=== PATIENT | female | born 1950 | race Caucasian/White ===

== ENCOUNTER 2021-10-17 17:22 | Observation (INO) | payer MEDICARE, MEDICAID ==
[2021-10-17] VITALS (12 sets, daily range): BP systolic 109–168; BP diastolic 50–132
[~2021-10-17] VITALS: Ht 149.9 cm; Wt 42.0 kg
[2021-10-17 18:23] LABS: HEMATOCRIT 41.5 % (37.0-47.0); HEMOGLOBIN 13.5 g/dl (12.0-16.0); IMMATURE GRANULOCYTES 0.1 % (0.0-5.0); MEAN CELL VOLUME 93.7 fL CALC (80.0-100.0); MEAN CORPUSCULAR HGB 30.5 pG CALC (26.0-32.0); MEAN CORPUSCULAR HGB CONC 32.5 g/dL CAL (32.0-36.0); NEUT# 12.62 thou/uL (2.00-7.15); RED BLOOD COUNT 4.43 mill/uL (4.20-5.60); RED CELL DISTRI WIDTH 14.4 % (11.5-15.5)
[2021-10-17 19:36] LABS: ALKALINE PHOSPHATASE 109 u/l (38-126); ANION GAP 13 (6-22 (CALC)); BILIRUBIN, TOTAL 0.4 mg/dL (0.0-1.4); BUN 11 mg/dL (8-23); BUN/CREATININE RATIO 21 (12-20 (CALC)); CARBON DIOXIDE 30 mmol/l (22-30); CHLORIDE 92 mmol/l (95-108); CREATININE 0.5 mg/dL (0.5-1.0); GFR > 60 ML/MIN (>=60 (CALC)); GFR FOR AFR.AMER. > 60 ML/MIN (>=60 (CALC)); POTASSIUM 3.8 mmol/l (3.5-5.1); SGOT/AST 25 u/l (9-36); SODIUM 132 mmol/l (137-146); TOTAL PROTEIN 7.2 g/dL (6.3-8.2)
[2021-10-18] VITALS (7 sets, daily range): BP systolic 118–176; BP diastolic 53–77
[2021-10-18 06:44] LABS: CHOLESTEROL HDL RATIO 2.1 (<4.4 (CALC)); MAGNESIUM 1.6 mg/dL (1.6-2.3)
[2021-10-18] MEDS ORDERED: XARELTO2.5 MG PO (11:46)
[2021-10-19 16:21] VITALS: BP 150/68
[2021-10-19 19:07] VITALS: BP 171/99
[2021-10-19 23:40] VITALS: BP 165/91
[2021-10-20 03:36] VITALS: BP 148/65
[2021-10-20 05:33] LABS: HEMATOCRIT 38.9 % (37.0-47.0); HEMOGLOBIN 12.4 g/dl (12.0-16.0); MEAN CELL VOLUME 95.6 fL CALC (80.0-100.0); MEAN CORPUSCULAR HGB 30.5 pG CALC (26.0-32.0); MEAN CORPUSCULAR HGB CONC 31.9 g/dL CAL (32.0-36.0); RED BLOOD COUNT 4.07 mill/uL (4.20-5.60); RED CELL DISTRI WIDTH 14.9 % (11.5-15.5)
[2021-10-20 05:56] LABS: ANION GAP 11 (6-22 (CALC)); BUN 12 mg/dL (8-23); BUN/CREATININE RATIO 34 (12-20 (CALC)); CARBON DIOXIDE 31 mmol/l (22-30); CHLORIDE 95 mmol/l (95-108); CREATININE 0.4 mg/dL (0.5-1.0); GFR > 60 ML/MIN (>=60 (CALC)); GFR FOR AFR.AMER. > 60 ML/MIN (>=60 (CALC)); POTASSIUM 4.5 mmol/l (3.5-5.1); SODIUM 133 mmol/l (137-146)
[2021-10-20 05:59] LABS: MAGNESIUM 2.2 mg/dL (1.6-2.3)
[2021-10-20 07:14] VITALS: BP 163/87
[2021-10-20 15:25] VITALS: BP 171/79
[2021-10-20 20:20] VITALS: BP 156/64
[2021-10-21 02:46] VITALS: BP 150/69
[2021-10-21 06:53] VITALS: BP 138/63
[2021-10-21] MEDS ORDERED: ZPAK PO (13:10)
[2021-10-21] MEDS ORDERED: LOSARTAN POTASS50 MG PO (13:11)
[2021-10-21] MEDS ORDERED: PREDNISONE10 MG PO (13:11)
[2021-10-21] MEDS ORDERED: MUCINEX600 MG PO (13:11)
[2021-10-21] MEDS ORDERED: TRELEGY ELLIPTA1 AER IN (13:13)
[2021-10-21] MEDS ORDERED: OXY1 (13:16)
[2021-10-21 15:23] VITALS: BP 172/95
[2021-10-21 16:31] VITALS: BP 193/100
[2021-10-21 17:27] VITALS: BP 144/62
[2021-10-21 20:17] VITALS: BP 117/75
[2021-10-22 05:34] VITALS: BP 122/74
[2021-10-22 08:00] VITALS: BP 142/79
[2021-10-22 08:20] VITALS: BP 142/79
[2021-10-22] MEDS ORDERED: XARELTO2.5 MG PO (13:08)
== END 2021-10-22 14:00 | disposition home or self-care (01) ==
LOC: ED 17:22 → ED-I 19:59 → ED 19:59 → ED-I 20:25 → ED 20:33 → MS2 20:34 → ED-I 20:34 → MS2 10-18 00:11
PROVIDERS: Family Medicine; Nurse Practitioner; ADMIT Internal Medicine; ATTEND Internal Medicine
DX: J43.9 Emphysema, unspecified (principal); R09.02 Hypoxemia; R49.22 Hyponasality; I10 Essential (primary) hypertension; K59.00 Constipation, unspecified; I73.9 Peripheral vascular disease, unspecified; F17.210 Nicotine dependence, cigarettes, uncomplicated; Z85.118 Personal history of other malignant neoplasm of bronchus and lung; Z92.3 Personal history of irradiation; Z92.21 Personal history of antineoplastic chemotherapy; Z79.01 Long term (current) use of anticoagulants; Z95.820 Peripheral vascular angioplasty status with implants and grafts; Z20.822 Contact with and (suspected) exposure to COVID-19
CPT/HCPCS: G0378; J1650